=== PATIENT | male | born 1990 | race Two or more races ===

== ENCOUNTER 2017-06-21 11:17 | Emergency (ER) | payer OTHER ==
[~2017-06-21] VITALS: Ht 167.6 cm; Wt 63.5 kg
[2017-06-21 11:22] VITALS: BP 124/83
== END 2017-06-21 11:27 | disposition home or self-care (01) ==
LOC: ER 11:19
DX: R25.2 Cramp and spasm (principal)
CPT/HCPCS: 99283; A4606; Z7610